=== PATIENT | female | born 1965 | race Caucasian/White ===

== ENCOUNTER 2017-04-03 17:49 | Inpatient (IN) | payer OTHER ==
[~2017-04-03] VITALS: Ht 154.9 cm; Wt 78.3 kg
[2017-04-03 19:07] VITALS: Ht 154.9 cm; Wt 78.3 kg
[2017-04-03 20:00] VITALS: BP 152/73; PULSE 69; RESP 20
[2017-04-03 20:32] VITALS: PULSE 73
[2017-04-03 21:20] LABS: CALCIUM 9.9 mg/dl (8.4-10.2); CREATININE 0.75 mg/dl (0.44-1.00)
[2017-04-03 21:25] LABS: POTASSIUM 2.9 mmol/L (3.5-5.1)
[2017-04-03] MEDS: PROCHLORPERAZINE 10 MG INJ IV PRN (21:31)
[2017-04-03] MEDS ORDERED: VITAMIN A & D 5 GM OINT PACKET TOP ONE (21:51)
[2017-04-03] MEDS ORDERED: MAGNESIUM HYDROXIDE 30ML CUP PO PRN (22:30)
[2017-04-03] MEDS ORDERED: NACL 0.9% 3 ML SYG IV SCH (22:30)
[2017-04-03] MEDS ORDERED: ACETAMINOPHEN 325 MG TAB PO PRN (22:30)
[2017-04-03] MEDS ORDERED: ACETAMINOPHEN 650 MG SUPP PR PRN (22:30)
[2017-04-03] MEDS ORDERED: DOCUSATE SODIUM 100 MG CAP PO PRN (22:30)
[2017-04-03] MEDS: POTASSIUM CHLORIDE 30 MEQ in DEXTROSE 5%-0.9% NACL 1,000 ML IV SCH (22:57)
[2017-04-03 23:33] VITALS: BP 147/79; RESP 18
[2017-04-04] VITALS (11 sets, daily range): BP systolic 137–159; BP diastolic 70–82; PULSE 62–74; RESP 16–18
[2017-04-04] MEDS: PROCHLORPERAZINE 10 MG INJ IV PRN (03:12)
[2017-04-04] MEDS ORDERED: PANTOPRAZOLE 40 MG INJ IV SCH (06:00)
[2017-04-04] MEDS: PANTOPRAZOLE 40 MG INJ IV SCH (06:01)
[2017-04-04 08:00] LABS: ADD SCAN DIFF NO
[2017-04-04 08:22] LABS: BASOPHILS % 0.2 % (0.0-2.0); HEMOGLOBIN 12.6 g/dl (12.0-16.0); LYMPHOCYTES # 3.8 10^3/ul (0.8-2.9); LYMPHOCYTES % 25.4 % (15.0-51.0); MEAN CORPUSCULAR HEMOGLOBIN 26.8 pg (29.0-33.0); MEAN CORPUSCULAR HGB CONC 32.3 g/dl (32.0-37.0); MEAN PLATELET VOLUME 10.8 fl (7.4-10.4); MONOCYTE # 1.3 10^3/ul (0.3-0.9); MONOCYTES % 8.9 % (0.0-11.0); NEUTROPHIL # 9.7 10^3/ul (1.6-7.5); NEUTROPHILS % 64.9 % (39.0-77.0); PLATELET COUNT 294 10^3/UL (140-415); WHITE BLOOD COUNT 14.9 10^3/ul (4.8-10.8)
[2017-04-04 08:26] LABS: ALBUMIN 4.8 g/dl (3.3-4.9); ALBUMIN/GLOBULIN RATIO 1.84; BILIRUBIN,INDIRECT 0.7 mg/dl (0-1.1); BILIRUBIN,TOTAL 0.7 mg/dl (0.2-1.3); CALCIUM 9.4 mg/dl (8.4-10.2); CREATININE 0.71 mg/dl (0.44-1.00); TOTAL PROTEIN 7.4 g/dl (6.1-8.1)
--- NOTE | 2017-04-04 09:59 | HP ---
DATE OF ADMISSION: 04/03/2017 HISTORY OF PRESENT ILLNESS: The patient is a 52-year-old female with a history of hip pain in the past, a history of tubal ligation, who was taken to [facility]. The patient has had nausea, vomiting and diarrhea for the last couple of days after Father's Day, and noted to have hypokalemia and was transferred here for further management. Ultrasound of the abdomen shows a normal abdominal ultrasound. CT of the abdomen and pelvis shows no evidence of urolithiasis, obstructive uropathy, diverticulitis or appendicitis. A small left-sided periumbilical hernia containing a knuckle of small bowel, without obstruction. The patient's WBC is 22.8, hematocrit 43.6, platelet count of 346. The patient's leukocyte esterase is negative and the patient's platelets are 346. The patient's urine blood was 3+, potassium 2.5, sodium 135, creatinine 1.14, glucose 133, BUN 21, AST 43. The patient was transferred to [facility] for further management. PAST MEDICAL HISTORY: Depression, anxiety, arthritis, hip pain, tubal ligation. ALLERGY HISTORY: She denies at this point. FAMILY HISTORY: Positive for hypertension and cancer. Family members, both mom and dad, are sick. MEDICATIONS: Celexa. REVIEW OF SYSTEMS: HEENT: Unremarkable. RESPIRATORY: Unremarkable. CARDIOVASCULAR: Unremarkable. ABDOMEN: No diarrhea. . GASTROINTESTINAL: Nausea and vomiting. GENITOURINARY: No dysuria or hematuria. PHYSICAL EXAMINATION: GENERAL: The patient is awake and alert. VITAL SIGNS: Stable. HEAD: Atraumatic, normocephalic. Pupils are equal and reactive to light. NECK: Supple. There is no JVD. LUNGS: Clear. CARDIOVASCULAR: S1, S2 are normal. ABDOMEN: Soft, nontender. Bowel sounds present. No palpable mass or hepatosplenomegaly. No guarding or rebound tenderness. EXTREMITIES: There is no cyanosis, clubbing, or edema. CENTRAL NERVOUS SYSTEM: The patient is awake, alert, with no focal deficits. LABORATORY DATA: As mentioned above. IMPRESSION: 1. Hypokalemia. 2. Systemic inflammatory response syndrome. 3. Possible underlying gastroenteritis. 4. Doubt food poisoning. 5. Electrolyte imbalance. 6. Acute kidney injury. 7. History of anxiety and depression. PLAN: At this point continue IV fluid, potassium supplementation. Follow laboratory data, pain medication, antinausea medication. CBC will be checked. Orders were done. Dictated By: AMANDA MACK/CATHY Conf#: [id number] DID#: [id number] MTDD
[2017-04-04] MEDS ORDERED: METOCLOPRAMIDE 10 MG INJ IV PRN (10:00)
[2017-04-04] MEDS: POTASSIUM CHLORIDE 30 MEQ in DEXTROSE 5%-0.9% NACL 1,000 ML IV SCH ×2 (11:00→13:18)
[2017-04-04] MEDS: ACETAMINOPHEN 325 MG TAB PO PRN (12:00)
[2017-04-04] MEDS ORDERED: CITA20TA11 PO (12:04)
[2017-04-04] MEDS: traMADol 50 MG TAB PO PRN ×2 (14:47→21:29)
[2017-04-04] MEDS: POTASSIUM CHLORIDE 250 ML IVPB SCH (21:28)
[2017-04-05] VITALS (11 sets, daily range): BP systolic 119–144; BP diastolic 77–91; PULSE 55–74; RESP 16–18
[2017-04-05] MEDS: POTASSIUM CHLORIDE 250 ML IVPB SCH (02:49)
[2017-04-05] MEDS: POTASSIUM CHLORIDE 30 MEQ in DEXTROSE 5%-0.9% NACL 1,000 ML IV SCH (02:50)
[2017-04-05] MEDS: traMADol 50 MG TAB PO PRN (04:04)
[2017-04-05] MEDS: PANTOPRAZOLE 40 MG INJ IV SCH (06:09)
[2017-04-05 07:55] LABS: ADD SCAN DIFF NO
[2017-04-05 08:03] LABS: BASOPHILS % 0.3 % (0.0-2.0); EOSINOPHILS # 0.1 10^3/ul (0.0-0.5); EOSINOPHILS % 0.6 % (0.0-7.0); HEMATOCRIT 35.2 % (37.0-47.0); HEMOGLOBIN 11.3 g/dl (12.0-16.0); LYMPHOCYTES # 3.7 10^3/ul (0.8-2.9); LYMPHOCYTES % 40.3 % (15.0-51.0); MEAN CORPUSCULAR HEMOGLOBIN 26.8 pg (29.0-33.0); MEAN CORPUSCULAR HGB CONC 32.1 g/dl (32.0-37.0); MEAN CORPUSCULAR VOLUME 83.6 fl (82.0-101.0); MEAN PLATELET VOLUME 10.4 fl (7.4-10.4); MONOCYTE # 0.9 10^3/ul (0.3-0.9); MONOCYTES % 9.8 % (0.0-11.0); NEUTROPHIL # 4.5 10^3/ul (1.6-7.5); NEUTROPHILS % 48.7 % (39.0-77.0); PLATELET COUNT 244 10^3/UL (140-415); RED BLOOD COUNT 4.21 10^6/ul (4.20-5.40); RED CELL DISTRIBUTION WIDTH 14.8 % (11.5-14.5); WHITE BLOOD COUNT 9.3 10^3/ul (4.8-10.8)
[2017-04-05 09:01] LABS: ALBUMIN 4.3 g/dl (3.3-4.9); ALBUMIN/GLOBULIN RATIO 1.79; BILIRUBIN,INDIRECT 0.2 mg/dl (0-1.1); BILIRUBIN,TOTAL 0.2 mg/dl (0.2-1.3); CREATININE 0.64 mg/dl (0.44-1.00); POTASSIUM 4.2 mmol/L (3.5-5.1); TOTAL PROTEIN 6.7 g/dl (6.1-8.1)
--- NOTE | 2017-04-05 10:29 | PN ---
Date/Time of Note Date/Time of Note DATE: 04/05/17 TIME: 10:28 Assessment/Plan VTE Prophylaxis VTE Prophylaxis Intervention: ambulation Lines/Catheters IV [facility] Peripheral IV Urinary Cath still in place: No Assessment/Plan Chief Complaint/Hosp Course 1. Hypokalemia, resolved. 2. Systemic inflammatory response syndrome. 3. Viral gastroenteritis. 4. Doubt food poisoning. 5. Electrolyte imbalance. 6. Acute kidney injury. 7. History of anxiety and depression. Problems: Assessment/Plan 1. Stop IV fluids 2.D/c tomorrow Subjective 24 Hr Interval Summary Constitutional: improved, no complaints Cardiovascular: no complaints Gastrointestinal: no complaints Genitourinary: no complaints Exam/Review of Systems Vital Signs Vitals Vital Signs Date Time Temp Pulse Resp B/P Pulse Ox O2 Delivery O2 Flow Rate FiO2 04/05/17 08:32 55 04/05/17 07:42 98.0 16 131/79 98 04/03/17 20:00 Room Air Intake and Output 04/04/17 04/04/17 04/05/17 15:00 23:00 07:00 Intake Total 560 ml 1500 ml Balance 560 ml 1500 ml Exam Constitutional: alert, oriented Neck: supple Respiratory: clear to auscultation Cardiovascular: regular rate and rhythm Results Result Diagram: 04/05/1738 04/05/17 0638 Results 24 hrs Laboratory Tests Test 04/05/17 06:38 White Blood Count 9.3 # Red Blood Count 4.21 Hemoglobin 11.3 L Hematocrit 35.2 L Mean Corpuscular Volume 83.6 Mean Corpuscular Hemoglobin 26.8 L Mean Corpuscular Hemoglobin Concent 32.1 Red Cell Distribution Width 14.8 H Platelet Count 244 Mean Platelet Volume 10.4 Neutrophils % 48.7 Lymphocytes % 40.3 Monocytes % 9.8 Eosinophils % 0.6 Basophils % 0.3 Nucleated Red Blood Cells % 0.0 Neutrophils # 4.5 Lymphocytes # 3.7 H Monocytes # 0.9 Eosinophils # 0.1 Basophils # 0.0 Nucleated Red Blood Cells # 0.0 Sodium Level 140 Potassium Level 4.2 Chloride Level 108 Carbon Dioxide Level 25 Anion Gap 11 Blood Urea Nitrogen 7 Creatinine 0.64 Glucose Level 96 Calcium Level 9.0 Total Bilirubin 0.2 Direct Bilirubin 0.00 Indirect Bilirubin 0.2 Aspartate Amino Transf (AST/SGOT) 26 Alanine Aminotransferase (ALT/SGPT) 36 Alkaline Phosphatase 58 Total Protein 6.7 Albumin 4.3 Globulin 2.40 Albumin/Globulin Ratio 1.79 Medications Medications Current Medications Potassium Chloride/Dextrose/ Sodium Chloride (KCl/D5-NS) 1,015 ml @ 70 mls/hr [id number] IV Last administered on 04/04/17 13:18; Admin Dose 70 MLS/HR; Start at 20:30 Prochlorperazine (Compazine Inj) 10 mg TID PRN IV NAUSEA AND/OR VOMITING Last administered on 04/04/17 03:12; Admin Dose 10 MG; Start 04/03/17 at 20:30 Acetaminophen (Tylenol Tab) 650 mg Q4H PRN PO PAIN AND OR ELEVATED TEMP Last administered on 04/04/17 12:00; Admin Dose 650 MG; Start 04/03/17 at 20:30 Acetaminophen (Tylenol Tab) 650 mg Q6H PRN PO PAIN LEVEL 1-3 OR FEVER; Start at 22:30 Acetaminophen (Tylenol Supp) 650 mg Q6H PRN [place] PAIN LEVEL 1-3 OR FEVER; Start 04/03/17 at 22:30 Docusate Sodium (Colace) 100 mg Q12H PRN PO CONSTIPATION; Start 04/03/17 at 22: 30 Magnesium Hydroxide (Milk Of Mag) 30 ml DAILY PRN PO CONSTIPATION; Start at 22:30 Pantoprazole (Protonix Iv) 40 mg DAILY@06 IV Last administered on 04/05/17 06: 09; Admin Dose 40 MG; Start 04/04/17 at 06:00 Metoclopramide HCl (Reglan) 10 mg TID PRN IV NAUSEA; Start 04/04/17 at 10:00 Tramadol HCl (Ultram) 50 mg TID PRN PO PAIN Last administered on 04/05/17 04: 04; Admin Dose 50 MG; Start 04/04/17 at 10:00 PAT DOS SANTOS Apr 05, 2017 10:29
[2017-04-06] VITALS (10 sets, daily range): BP systolic 124–144; BP diastolic 62–83; PULSE 55–68; RESP 15–20
[2017-04-06] MEDS: PANTOPRAZOLE 40 MG INJ IV SCH (05:23)
[2017-04-06 09:50] LABS: ADD SCAN DIFF NO
--- NOTE | 2017-04-06 09:56 | RADRPT ---
PROCEDURE: CT Brain without contrast. CLINICAL INDICATION: Headache with ringing sounds from year. TECHNIQUE: A CT of the brain was performed on a [employer] CT scanner [id number] ng a low dose technique with axial imaging from the skull base through the vertex without IV contras t. Multiplanar reformatted images were made. Images were reviewed on a PACS workstation. The CTDI vol is 44.3 mGy and the DLP is 720.2 mGycm. One or more of the following dose reduction techniques were used: - Automated exposure control. - Adjustment of the mA and/or kV according to patient size. Use of iterative reconstruction technique. COMPARISON: None FINDINGS: The fourth ventricle is normal in size. The third and lateral ventricles are normal in size and con figuration. The brain parenchyma is normal. The visible portions of the globes and extraocular muscles are normal. The paranasal sinuses are cl ear. The mastoid air cells and internal auditory canals are normal. The bony calvarium is intact. IMPRESSION: 1. Negative CT scan of the brain without contrast. RPTAT:AAJJ Physician Jagjit Date Time Electronically viewed and signed by Physician Jagjit on 04/06/2017 09:56 MANINDER/
[2017-04-06 09:57] LABS: BASOPHILS % 0.5 % (0.0-2.0); EOSINOPHILS # 0.1 10^3/ul (0.0-0.5); EOSINOPHILS % 0.8 % (0.0-7.0); HEMATOCRIT 39.6 % (37.0-47.0); HEMOGLOBIN 12.5 g/dl (12.0-16.0); LYMPHOCYTES # 2.9 10^3/ul (0.8-2.9); LYMPHOCYTES % 35.1 % (15.0-51.0); MEAN CORPUSCULAR HEMOGLOBIN 26.8 pg (29.0-33.0); MEAN CORPUSCULAR HGB CONC 31.6 g/dl (32.0-37.0); MEAN CORPUSCULAR VOLUME 84.8 fl (82.0-101.0); MEAN PLATELET VOLUME 10.6 fl (7.4-10.4); MONOCYTE # 0.6 10^3/ul (0.3-0.9); MONOCYTES % 7.6 % (0.0-11.0); NEUTROPHIL # 4.6 10^3/ul (1.6-7.5); NEUTROPHILS % 55.6 % (39.0-77.0); PLATELET COUNT 269 10^3/UL (140-415); RED BLOOD COUNT 4.67 10^6/ul (4.20-5.40); RED CELL DISTRIBUTION WIDTH 14.6 % (11.5-14.5); WHITE BLOOD COUNT 8.3 10^3/ul (4.8-10.8)
[2017-04-06 10:23] LABS: CALCIUM 9.5 mg/dl (8.4-10.2); CREATININE 0.68 mg/dl (0.44-1.00); POTASSIUM 4.1 mmol/L (3.5-5.1)
[2017-04-06] MEDS: ACETAMINOPHEN 325 MG TAB PO PRN (10:37)
--- NOTE | 2017-04-06 13:20 | PN ---
Date/Time of Note Date/Time of Note DATE: 04/06/17 TIME: 13:18 Assessment/Plan VTE Prophylaxis VTE Prophylaxis Intervention: ambulation Lines/Catheters IV [facility]from [facility] [place] Lock Urinary Cath still in place: No Assessment/Plan Chief Complaint/Hosp Course 1. Hypokalemia, resolved. 2. Systemic inflammatory response syndrome, resolving. 3. Viral gastroenteritis. 4. Doubt food poisoning. 5. Electrolyte imbalance, resolving. 6. Acute kidney injury. 7. History of anxiety and depression. 8. Nose bleed Problems: Assessment/Plan 1. D/c planning tomorrow, pt reported severe burden at home 2. Pain control headache 3. CT neg Subjective 24 Hr Interval Summary Constitutional: improved, no complaints Cardiovascular: lightheadedness Neurologic: headache Lymphatic: no complaints Exam/Review of Systems Vital Signs Vitals Vital Signs Date Time Temp Pulse Resp B/P Pulse Ox O2 Delivery O2 Flow Rate FiO2 04/06/17 12:12 68 04/06/17 11:47 98.2 18 134/71 99 04/03/17 20:00 Room Air Intake and Output 04/05/17 04/05/17 04/06/17 15:00 23:00 07:00 Intake Total 1080 ml 1600 ml Balance 1080 ml 1600 ml Exam Constitutional: alert, oriented Psych: no complaints Head: normocephalic ENMT: mucosa pink and moist (old blood), nl external ears & nose Respiratory: clear to auscultation Cardiovascular: regular rate and rhythm Results Result Diagram: 04/06/17 0852 04/06/17 0852 Results 24 hrs Laboratory Tests Test 04/06/17 08:52 White Blood Count 8.3 Red Blood Count 4.67 Hemoglobin 12.5 Hematocrit 39.6 Mean Corpuscular Volume 84.8 Mean Corpuscular Hemoglobin 26.8 L Mean Corpuscular Hemoglobin Concent 31.6 L Red Cell Distribution Width 14.6 H Platelet Count 269 Mean Platelet Volume 10.6 H Neutrophils % 55.6 Lymphocytes % 35.1 Monocytes % 7.6 Eosinophils % 0.8 Basophils % 0.5 Nucleated Red Blood Cells % 0.0 Neutrophils # 4.6 Lymphocytes # 2.9 Monocytes # 0.6 Eosinophils # 0.1 Basophils # 0.0 Nucleated Red Blood Cells # 0.0 Sodium Level 138 Potassium Level 4.1 Chloride Level 101 Carbon Dioxide Level 28 Anion Gap 13 Blood Urea Nitrogen 10 Creatinine 0.68 Glucose Level 90 Calcium Level 9.5 Medications Medications Current Medications Prochlorperazine (Compazine Inj) 10 mg TID PRN IV NAUSEA AND/OR VOMITING Last administered on 04/04/17 03:12; Admin Dose 10 MG; Start 04/03/17 at 20:30 Acetaminophen (Tylenol Tab) 650 mg Q4H PRN PO PAIN AND OR ELEVATED TEMP Last administered on 04/06/17 10:37; Admin Dose 650 MG; Start 04/03/17 at 20:30 Acetaminophen (Tylenol Tab) 650 mg Q6H PRN PO PAIN LEVEL 1-3 OR FEVER; Start at 22:30 Acetaminophen (Tylenol Supp) 650 mg Q6H PRN [place] PAIN LEVEL 1-3 OR FEVER; Start 04/03/17 at 22:30 Docusate Sodium (Colace) 100 mg Q12H PRN PO CONSTIPATION; Start 04/03/17 at 22: 30 Magnesium Hydroxide (Milk Of Mag) 30 ml DAILY PRN PO CONSTIPATION; Start at 22:30 Pantoprazole (Protonix Iv) 40 mg DAILY@06 IV Last administered on 04/06/17 05: 23; Admin Dose 40 MG; Start 04/04/17 at 06:00 Metoclopramide HCl (Reglan) 10 mg TID PRN IV NAUSEA; Start 04/04/17 at 10:00 Tramadol HCl (Ultram) 50 mg TID PRN PO PAIN Last administered on 04/05/17 04: 04; Admin Dose 50 MG; Start 04/04/17 at 10:00 PAT DOS SANTOS Apr 06, 2017 13:20
[2017-04-06] MEDS ORDERED: HYDROCODONE/APAP (5/325) TAB NGT PRN (13:30)
--- NOTE | 2017-04-06 17:36 | PDOCDIS ---
Discharge Instructions CONDITION Patient Condition: Stable HOME CARE INSTRUCTIONS: Special Diet: REGULAR DIET ACTIVITY: Activity Restrictions: Slowly Increase Activity FOLLOW UP/APPOINTMENTS Follow-up Plan f/u own pcp 1 wk AMANDA MINOR MD Apr 06, 2017 17:36
[2017-04-06] MEDS ORDERED: TRAM50TA2 PO (17:37)
[2017-04-06] MEDS ORDERED: ACET325T40 PO (17:37)
[2017-04-06] MEDS ORDERED: PANT40TA4 PO (17:37)
[2017-04-07] MEDS ORDERED: PANTOPRAZOLE (EC) 40 MG TAB PO SCH (06:00)
== END 2017-04-06 19:02 | disposition home or self-care (01) | DRG 641 ==
LOC: MS4 18:41
PROVIDERS: ADMIT Internal Medicine Nephrology; ATTEND Internal Medicine Nephrology
DX: E87.6 Hypokalemia (principal); N17.9 Acute kidney failure, unspecified; A08.4 Viral intestinal infection, unspecified; E87.8 Other disorders of electrolyte and fluid balance, not elsewhere classified; F41.9 Anxiety disorder, unspecified; F32.9 Major depressive disorder, single episode, unspecified; M19.90 Unspecified osteoarthritis, unspecified site; R04.0 Epistaxis; R51 Headache
CPT/HCPCS: 70450; 80048; 80053; 85025; 87081; C9113; J0780; J3480; J7042